=== PATIENT | male | born 1945 | race Caucasian/White ===

== ENCOUNTER → 2019-01-14 12:39 | Outpatient (CLI) | payer OTHER, SELFPAY ==
--- NOTE | 2019-01-14 12:49 | FL_ITS ---
FL barium swallow modified: 01/14/2019 12:49 PM CLINICAL HISTORY: Dysphagia, difficulty swallowing ORDERING PHYSICIAN: Jase Mcgowan PATIENT AGE: 73 years Comparison: None TECHNIQUE: Patient administered varying consistencies of barium contrast, while viewed in lateral position under real-time fluoroscopy with cine recording. FLUOROSCOPY TIME: 2 minutes 42 seconds The study was performed in conjunction with speech pathologist. Please see that report & recommendations. FINDINGS: Patient was given varying consistencies of barium. There was mild laryngeal penetration with thin liquids which did not improve with chin tuck. Other consistencies were swallowed without difficulty. Patient did experience some choking and coughing with loyd cracker consistency IMPRESSION: Mild penetration with thin liquids otherwise unremarkable Please see speech pathologist report and recommendations.
--- NOTE | 2019-01-14 14:24 | HMH.SLMBS2 ---
Speech & Language Evaluation Speech/Language Mod Barium Swallow Start: 01/14/19 13:50 Freq: once Status: Complete Protocol: Document 01/14/19 13:50 BRANDEE (Rec: 01/14/19 14:24 BRANDEE [id number]) [facility] [place]ations Diet Dietary Recommendations Mechanical Soft,[place] Liquids Treatment/Strategies Strategy/Precaution Recommend Sitting Upright (90 deg),Small Bites and Sips,Alternate Liquids/Solids Referrals/Other Recommended Referrals ENT Consult Mod Barium Swallow Impressions Summary and Impressions Oral Phase Impression No Impairment (WFL) Oral Phase Summary Mr. Dallas was given the following consistencies: thins via straw and open cup, nectar, pudding, mechanical soft, regular, and pill. No signs of impairment in oral phase noted. Pharyngeal Phase Impression Mild Impairment Pharyngeal Phase Summary Mr. Dallas did exhibit penetration into the laryngeal vestibule with thin liquids via straw and open cup. He coughed after swallowing regular consistency loyd cookie, although no signs of aspiration noted. He did exhibit tremors throughout his body that increased during drinking and eating which could impact his ability to safely swallow. Speech/Language MBS Assessment/Goals/Plan Assessment Date of Evaluation: 01/14/19 Evaluation Type Initial Certification Assessment/Problems Dysphagia Does Patient Qualify for Service No Qualify/Failure Comment Patient requires nectar thick liquids however due to the tremors, therapy may not improve. Plan Pt/Guardian verbally ack understanding Yes of dx/prognosis/goals G -code Required No Mod Barium Swallow Setup Exam Setup Radiologist Zbigniew Drake Level of Consciousness Awake,Alert,Appropriate, Follows Commands Position (degrees) 90 Mod Barium Swallow-Lat View Textures Lateral View Food Presentation Thin Liquid via Cup,Thin Liquid via Straw,[place] Liquid via Cup,Ground Food- Regular, Barium Tablet,Regular Food,
== END ==
PROVIDERS: Visit Provider Internal Medicine
DX: R13.10 Dysphagia, unspecified (principal)
CPT/HCPCS: 70371; 92611